=== PATIENT | female | born 1985 | race African-American/Black ===

== ENCOUNTER 2018-11-27 09:54 | Emergency (ER) | payer SELFPAY ==
--- NOTE | 2018-11-27 12:05 | ER Document Report ---
ED ENT - General Chief Complaint: Sinus Pain Stated Complaint: SINUS PAIN Time Seen by Provider: 11/27/18 11:09 Mode of Arrival: Ambulatory Information source: Patient Notes: 33-year-old female presented to ED for complaint of pain and drainage times 1 day. She denies any fevers. She states she had severe facial pain with congestion and drainage. She denies any cough. She states she always has to have penicillin when she gets the symptoms. She was very adamant that she was not going home without an antibiotic that D that she needed to be seen by another provider I needed to write her her penicillin. After examining her I explained to her that she had a viral upper respiratory infection. She states that needed to either treat her or have someone else see her. TRAVEL OUTSIDE OF THE [place] IN LAST 30 DAYS: No - HPI Patient complains to provider of: Nose problem Onset: Yesterday Onset/Duration: Gradual Quality of pain: Achy, Sharp Severity: Moderate Pain Level: 2 Context: Recent Illness Location of pain: Face, Sinus Associated symptoms: Runny nose, Sinus pain, Sinus drainage. denies: Congestion, Cough, Face swelling, Fever, Sore throat Similar symptoms previously: Yes Recently seen / treated by doctor: No - Related Data Allergies/Adverse Reactions: sulfamethoxazole [From Bactrim] Allergy (Verified 11/27/18 09:55) trimethoprim [From Bactrim] Allergy (Verified 11/27/18 09:55) Past Medical History - General Information source: Patient - Social History Smoking Status: Never Smoker Chew tobacco use (# tins/day): No Frequency of alcohol use: None Drug Abuse: Marijuana Lives with: Family Family History: Reviewed & Not Pertinent Patient has suicidal ideation: No Patient has homicidal ideation: No - Past Medical History Cardiac Medical History: Reports: None Pulmonary Medical History: Reports: Hx Asthma EENT Medical History: Reports: None Neurological Medical History: Reports: Hx Migraine Endocrine Medical History: Reports: None Renal/ Medical History: Reports: None Malignancy Medical History: Reports: None GI Medical History: Reports: None Musculoskeletal Medical History: Reports None Skin Medical History: Reports None Psychiatric Medical History: Reports: None Traumatic Medical History: Reports: None Infectious Medical History: Reports: None Past Surgical History: Reports: Hx Abdominal Surgery - GASTRIC SLEEVE., Hx Section Review of Systems - Review of Systems Constitutional: Recent illness. denies: Chills, Fever EENT: Nose congestion, Nose discharge, Sinus pressure, Sinus discharge Cardiovascular: No symptoms reported Respiratory: No symptoms reported Gastrointestinal: No symptoms reported Genitourinary: No symptoms reported Female Genitourinary: No symptoms reported Musculoskeletal: No symptoms reported Skin: No symptoms reported Hematologic/Lymphatic: No symptoms reported Neurological/Psychological: No symptoms reported -: Yes All other systems reviewed and negative Physical Exam - Vital signs Vitals: Temp Pulse Resp BP Pulse Ox 98.8 F 80 18 141/83 H 100 11/27/18 09:57 11/27/18 09:57 11/27/18 09:57 11/27/18 09:57 11/27/18 09:57 Interpretation: Normal - General General appearance: Appears well, Alert - HEENT Head: Normocephalic, Atraumatic Eyes: Normal Pupils: PERRL Ears: Normal External canal: Normal Tympanic membrane: Normal Sinus: Maxillary Nasal: Purulent discharge, Swelling Mouth/Lips: Normal Mucous membranes: Normal Pharynx: Post nasal drainage. No: Erythema, Exudate, Tonsillar hypertrophy Neck: Normal - Respiratory Respiratory status: No respiratory distress Chest status: Nontender Breath sounds: Normal Chest palpation: Normal - Cardiovascular Rhythm: Regular Heart sounds: Normal auscultation Murmur: No - Abdominal Inspection: Normal Distension: No distension Bowel sounds: Normal Tenderness: Nontender Organomegaly: No organomegaly - Back Back: Normal, Nontender - Extremities General upper extremity: Normal inspection, Nontender, Normal color, Normal ROM, Normal temperature General lower extremity: Normal inspection, Nontender, Normal color, Normal ROM, Normal temperature, Normal weight bearing. No: Elicia's sign - Neurological Neuro grossly intact: Yes Cognition: Normal Orientation: AAOx4 Rox Coma Scale Eye Opening: Spontaneous [place] Coma Scale Verbal: Oriented Rox Coma Scale Motor: Obeys Commands [place] Coma Scale Total: 15 Speech: Normal Motor strength normal: LUE, RUE, LLE, RLE Sensory: Normal - Psychological Associated symptoms: Normal affect, Normal mood - Skin Skin Temperature: Warm Skin Moisture: Dry Skin Color: Normal Course - Re-evaluation Re-evalutation: 11/27/18 12:13 Patient's assessment is consistent with an upper respiratory infection viral i nfection. Patient was insistent that she get penicillin for her viral infection. She states that nothing else works and that she needs that now or she goes home with pain in her face. I explained to the patient that if her strep was positive I would give her penicillin otherwise it is a viral infection and she does not require antibiotics. She became very angry and adamant that she needed penicillin today. She has in her record that she is allergic to amoxicillin. She states she is not allergic to amoxicillin it gives her yeast infection and penicillin and what makes her sinus infections better. She has not had any fever she is only been sick for 1 day. She insisted I get another provider to come and see her. I did go and talk to Dr. Sargent he came and examined the patient and stated that I needed to write her a prescription for penicillin that he had approved it and that she could have the penicillin. She has been discharged with a diagnosis of an upper respiratory infection with the penicillin prescription per Dr. Sargent's request. - Vital Signs Vital signs: Temp Pulse Resp BP Pulse Ox 97.5 F 81 18 143/91 H 100 11/27/18 12:22 11/27/18 12:22 11/27/18 12:22 11/27/18 12:22 11/27/18 12:22 Discharge - Discharge Clinical Impression: Otalgia of both ears, Sinus pain URI (upper respiratory infection) Qualifiers: URI type: unspecified viral URI Qualified Code(s): J06.9 - Acute upper respiratory infection, unspecified Condition: Stable Disposition: HOME, SELF-CARE Instructions: Family Physicians / Practices Additional Instructions: UPPER RESPIRATORY ILLNESS: You have a viral infection of the respiratory passages -- a "cold." This common infection causes nasal congestion, drainage, and often sore throat and cough. It is highly contagious. The disease usually lasts about 10 to 14 days. There is no "cure" for the viral infection -- it must run its course. If there is a complication, such as bacterial infection in the nose, sinuses, middle ear, or bronchial tubes, antibiotics may be required. The antibiotics won't affect the virus. Drink plenty of fluids. A humidifier may help. An expectorant medication or decongestant may make you more comfortable. Use acetaminophen or ibuprofen for fever or aches. See the doctor if fever persists over two days, if there is any significant worsening of your symptoms, or if you simply fail to improve as expected. USE OF ACETAMINOPHEN (Tylenol): Acetaminophen may be taken for pain relief or fever control. It's much safer than aspirin, offering a wider range of "safe" dosages. It is safe during . Some brand names are Tylenol, Panadol, Datril, Anacin 3, Tempra, and Liquiprin. Acetaminophen can be repeated every four hours. The following are maximum recommended dosages: >89 pounds or adults 650 mg to 900 mg Acetaminophen can be repeated every four hours. Maximum dose not to exceed 4000 mg a day. Penicillin VK You have been given a prescription for Penicillin VK. Your physician has determined that this is the best antibiotic for your condition. Pen VK can be taken with meals, however more of the antibiotic gets into the bloodstream if it's taken on an empty stomach. Penicillin usually has no side effects. However, allergy to penicillins is common. If you have had an allergic reaction to any drug of the penicillin family, you should never take any other penicillin. Notify your doctor at once if you develop hives, itching, swelling, faintness, or shortness of breath. FOLLOW-UP CARE: If you have been referred to a physician for follow-up care, call the physicians office for an appointment as you were instructed or within the next two days. If you experience worsening or a significant change in your symptoms, notify the physician immediately or return to the Emergency Department at any time for re-evaluation. Prescriptions: Penicillin V Potassium [Penicillin Vk 500 mg Tablet] 500 mg PO BID #20 tablet Forms: Elevated Blood Pressure
[2018-11-27 12:24] VITALS: BP 143/91
== END 2018-11-27 12:25 | disposition home or self-care (01) ==
LOC: ER 09:54
DX: J06.9 Acute upper respiratory infection, unspecified (principal); B97.89 Other viral agents as the cause of diseases classified elsewhere; J34.89 Other specified disorders of nose and nasal sinuses; H92.03 Otalgia, bilateral; R09.81 Nasal congestion; R09.82 Postnasal drip; F12.10 Cannabis abuse, uncomplicated; J45.909 Unspecified asthma, uncomplicated; Z88.1 Allergy status to other antibiotic agents; Z98.84 Bariatric surgery status
CPT/HCPCS: 87070; 87880; 99283

== ENCOUNTER 2020-02-11 10:14 | Emergency (ER) | payer BC ==
--- NOTE | 2020-02-11 10:40 | ER Document Report ---
ED Respiratory Problem - General Chief Complaint: Shortness Of Breath Stated Complaint: SHORT OF BREATH,CONGESTION Time Seen by Provider: 02/11/20 10:22 Notes: CHIEF COMPLAINT: Cough and congestion for 2 months HPI: 34-year-old obese female presenting to the emergency department complaining of cough and congestion for 2 months. Patient states that in October 2019 she had upper respiratory symptoms her tested positive for COVID-19 at that time. Patient states she did take a course of Augmentin but feels like the cough and congestion have been intermittent over the last 2 months still. Patient states her had a secondary retest that was -3 weeks ago. Patient has not had a fever. She states that she does have slight chest discomfort that is more with deep breathing than actual chest pain at rest. States this is also been ongoing for over a month. Patient states she called her PCP and was unable to get COVID testing done which is primarily what she is concerned about today. ROS: See HPI - all other systems were reviewed and are otherwise negative Constitutional: no fever Eyes: no drainage, no blurred vision ENT: + runny nose, no sore throat Cardiovascular: + pleuritic chest pain Resp: no SOB, no cough GI: no vomiting, no diarrhea, no abdominal pain : no dysuria Integumentary: no rash Allergy: no hives Musculoskeletal: no extremity pain or swelling Neurological: no numbness/tingling, no weakness MEDICATIONS: I agree with the patient medications as charted by the RN. ALLERGIES: I agree with the allergies as charted by the RN. PAST MEDICAL HISTORY/PAST SURGICAL HISTORY: Reviewed and agree as charted by RN. SOCIAL HISTORY: Reviewed and agree as charted by RN. FAMILY HISTORY: No significant familial comorbid conditions directly related to patient complaint EXAM: Reviewed vital signs as charted by RN. CONSTITUTIONAL: Alert and oriented and responds appropriately to questions. Well-appearing; well-nourished HEAD: Normocephalic; atraumatic EYES: PERRL; Conjunctivae clear, sclerae non-icteric ENT: normal nose; + clear rhinorrhea; moist mucous membranes; pharynx without lesions noted, no uvula edema or deviation, no tonsillar hypertrophy, phonation normal NECK: Supple without meningismus; non-tender; no cervical lymphadenopathy, no masses CARD: RRR; no murmurs, no clicks, no rubs, no gallops; symmetric distal pulses RESP: Normal chest excursion without splinting or tachypnea; breath sounds clear and equal bilaterally; no wheezes, no rhonchi, no rales, pulse oximetry 97% on room air not hypoxic ABD/GI: Obese, normal bowel sounds; non-distended; soft, non-tender, no rebound, no guarding; no palpable organomegaly or masses. BACK: The back appears normal and is non-tender to palpation, there is no CVA tenderness EXT: Normal ROM in all joints; non-tender to palpation; no cyanosis, no effusions, no edema SKIN: Normal color for age and race; warm; dry; good turgor; no acute lesions noted NEURO: Moves all extremities equally; Motor and sensory function intact PSYCH: The patient's mood and manner are appropriate. Grooming and personal hygiene are appropriate. MDM: 34-year-old female presenting for 2 months of upper respiratory symptoms 1 month of intermittent pleuritic type chest discomfort. had tested positive for COVID-19 2 months ago. Patient was treated with antibiotics apparently 2 months ago, has not had any other antibiotics recently. Has not h ad a fever does not become dyspneic with speaking. Given her chest pain complaint even though it appears pleuritic and less likely to be ACS will obtain 1 set of screening cardiac labs but will also include d-dimer. TRAVEL OUTSIDE OF THE [place] IN LAST 30 DAYS: No - Related Data Allergies/Adverse Reactions: sulfamethoxazole [From Bactrim] Allergy (Verified 11/27/18 09:55) trimethoprim [From Bactrim] Allergy (Verified 11/27/18 09:55) Past Medical History - Social History Smoking Status: Unknown if Ever Smoked Family History: Reviewed & Not Pertinent Pulmonary Medical History: Reports: Hx Asthma Neurological Medical History: Reports: Hx Migraine Renal/ Medical History: Denies: Hx Peritoneal Dialysis Past Surgical History: Reports: Hx Abdominal Surgery - GASTRIC SLEEVE., Hx Section Physical Exam - Vital signs Vitals: Temp Pulse Resp BP Pulse Ox 98.2 F 71 18 155/109 H 100 02/11/20 10:42 02/11/20 10:42 02/11/20 10:42 02/11/20 10:42 02/11/20 10:42 Course - Re-evaluation Re-evalutation: 02/11/20 11:03 Patient d-dimer was noted to be elevated. My review of her chest x-ray does not show an acute emergent abnormality or infiltrate. Will obtain CT chest to evaluate for PE 02/11/20 12:48 Patient's lab work does not show any other acute abnormalities other than the slightly elevated d-dimer and an unexplained elevation of her liver functions. Patient does not have abdominal pain is not jaundiced. Will have her follow this up with her PCP. Patient CT of the chest does not show evidence of any abnormalities including pulmonary embolus or pneumonia. She likely has pleurisy will place her on a course of anti-inflammatories and again follow-up with her PCP. Low suspicion for ACS. - Vital Signs Vital signs: Temp Pulse Resp BP Pulse Ox 98.2 F 71 18 155/109 H 100 02/11/20 10:47 02/11/20 10:42 02/11/20 10:42 02/11/20 10:42 02/11/20 10:42 - Laboratory Result Diagrams: 02/11/20 10:33 02/11/20 10:33 Laboratory results interpreted by me: 02/11/20 02/11/20 02/11/20 10:33 10:33 10:33 RDW 14.7 H Seg Neutrophils % 40.8 L D-Dimer 0.75 H Chloride 108 H AST 341 H ALT 244 H Alkaline Phosphatase 156 H Discharge - Discharge Clinical Impression: Pleuritic chest pain, Person under investigation for COVID-19 Condition: Stable Disposition: HOME, SELF-CARE Instructions: Pleurisy ([facility]) Additional Instructions: Your imaging studies including the CT of your chest did not show evidence of pneumonia or a blood clot. Your lab work did not show other acute abnormalities other than an unexplained elevation of your liver enzymes. This should be followed up with a primary care provider to have them rechecked and further evaluated. These are not likely related to your symptoms today. You are considered a person under investigation at this time quarantine at home for the next 14 days or until you have a negative test result. Return for worsening condition. Take the Voltaren to treat the pleuritic discomfort Prescriptions: Diclofenac Sodium [Voltaren 50 Mg Tablet.] 50 mg PO BID #20 tablet. Referrals: LISSY PEÑALOZA MD [ACTIVE STAFF] - Follow up as needed
[2020-02-11 10:51] LABS: ABSOLUTE EOSINOPHILS # (AUTO) 0.1 10^3/uL (0.0-0.6); ABSOLUTE LYMPHOCYTES (AUTO) 2.5 10^3/uL (0.5-4.7); ABSOLUTE MONOCYTES (AUTO) 0.7 10^3/uL (0.1-1.4); ABSOLUTE NEUT (AUTO) 2.3 10^3/uL (1.7-8.2); BASOPHILS % (AUTO) 0.8 % (0-2); EOSINOPHILS % (AUTO) 2.4 % (0-6); HEMATOCRIT 42.9 % (36.0-47.0); HEMOGLOBIN 14.6 g/dL (12.0-15.5); LYMPHOCYTES % (AUTO) 43.9 % (13-45); MEAN CORPUSCULAR HEMOGLOBIN 29.5 pg (27.0-33.4); MEAN CORPUSCULAR VOLUME 87 fl (80-97); MONOCYTES % (AUTO) 12.1 % (3-13); PLATELET COUNT 272 10^3/uL (150-450); RED BLOOD COUNT 4.95 10^6/uL (3.72-5.28); RED CELL DISTRIBUTION WIDTH 14.7 % (11.5-14.0); SEGMENTED NEUTROPHILS % (AUTO) 40.8 % (42-78); TOTAL CELLS COUNTED % (AUTO) 100 %; WHITE BLOOD COUNT 5.7 10^3/uL (4.0-10.5)
[2020-02-11 11:05] LABS: ALBUMIN 4.3 g/dL (3.5-5.0); ALKALINE PHOSPHATASE 156 U/L (38-126); ANION GAP 7 (5-19); ASPARTATE AMINO TRANSFERASE 341 U/L (14-36); BILIRUBIN,TOTAL 0.5 mg/dL (0.2-1.3); BLOOD UREA NITROGEN 12 mg/dL (7-20); CALCIUM 9.5 mg/dL (8.4-10.2); CARBON DIOXIDE 23 mmol/L (22-30); CHLORIDE 108 mmol/L (98-107); GLUCOSE 91 mg/dL (75-110); POTASSIUM 4.1 mmol/L (3.6-5.0); TOTAL PROTEIN 7.4 g/dL (6.3-8.2)
--- NOTE | 2020-02-11 11:51 | RADIOLOGY REPORT (SQ) ---
EXAM DESCRIPTION: CHEST SINGLE VIEW IMAGES COMPLETED DATE/TIME: 02/11/2020 10:54 am REASON FOR STUDY: cough COMPARISON: None. TECHNIQUE: Single frontal radiographic view of the chest acquired. NUMBER OF VIEWS: One view. LIMITATIONS: None. FINDINGS: LUNGS AND PLEURA: No pneumothorax. No consolidation or pleural effusion. MEDIASTINUM AND HILAR STRUCTURES: No contour abnormalities. HEART AND VASCULAR STRUCTURES: Heart normal size. BONES: No acute findings. HARDWARE: None in the chest. OTHER: No other significant finding. IMPRESSION: NO ACUTE FINDINGS. TECHNICAL DOCUMENTATION: JOB ID: [id number] [place]-72 2010 [employer]- All Rights Reserved Reading location - IP/workstation name: [email or web address]
--- NOTE | 2020-02-11 12:16 | RADIOLOGY REPORT (SQ) ---
EXAM DESCRIPTION: CTA CHEST IMAGES COMPLETED DATE/TIME: 02/11/2020 11:59 am REASON FOR STUDY: elevated D dimer, pleurisy COMPARISON: None. TECHNIQUE: CT scan of the chest performed using helical scanning technique with dynamic intravenous contrast injection. Images reviewed with lung, soft tissue and bone windows. Reconstructed coronal and sagittal MPR images reviewed. Additional 3 dimensional post-processing performed to develop Maximal Intensity Projection images ([place] P). All images stored on PACS. All CT scanners at this facility use dose modulation, iterative reconstruction, and/or weight based d osing when appropriate to reduce radiation dose to as low as reasonably achievable (ALARA). [facility]: Dose Right [facility]: CareDose [facility]: Dose Right [facility]: Teradose 4D [facility]: [employer] CONTRAST TYPE AND DOSE: 90 mL Isovue 370- low osmolar. Contrast bolus optimized for the pulmonary arteries. Not diagnostic for the aorta. RENAL FUNCTION: GFR > 60. RADIATION DOSE: CT Rad equipment meets quality standard of care and radiation dose reduction techniq ues were employed. CTDIvol: 6.6 - 33.1 mGy. DLP: 1068 mGy-cm. . LIMITATIONS: None. FINDINGS: LUNGS AND PLEURA: No masses, infiltrates, or pneumothorax. No pleural effusions or pleura l calcifications. AORTA AND GREAT VESSELS: No aneurysm. Contrast bolus not optimized for the aorta. HEART: No pericardial effusion. No significant coronary artery calcifications. PULMONARY ARTERIES: No emboli visualized in the main pulmonary arteries or the segmental branches. HILAR AND MEDIASTINAL STRUCTURES: No identified masses or abnormal nodes. HARDWARE: None in the chest. UPPER ABDOMEN: No significant findings. Limited exam. THYROID AND OTHER SOFT TISSUES: No masses. No adenopathy. BONES: No acute or significant finding. 3D MIPS: Confirm above findings. OTHER: No other significant finding. IMPRESSION: NORMAL CTA OF THE CHEST. NO PULMONARY EMBOLI. COMMENT: Quality ID # [id number]: Final reports with documentation of one or more dose reduction techniques (e.g., Automated exposure control, adjustment of the mA and/or kV according to patient size, use of iterative reconstruction technique) TECHNICAL DOCUMENTATION: JOB ID: [id number] [place]-72 2010 [employer]- All Rights Reserved Reading location - IP/workstation name: [email or web address]
[2020-02-11 13:30] VITALS: BP 139/91
--- NOTE | 2020-02-11 22:40 | EKG REPORT ---
SEVERITY:- BORDERLINE ECG - SINUS RHYTHM PROBABLE LEFT ATRIAL ABNORMALITY : Confirmed by: Juliana Espitia MD 11-Feb-2020 22:40:29
== END 2020-02-11 13:25 | disposition home or self-care (01) ==
LOC: ER 10:14
DX: R07.81 Pleurodynia (principal); Z20.828 Contact with and (suspected) exposure to other viral communicable diseases; R06.02 Shortness of breath; R09.81 Nasal congestion; R05 Cough; J34.89 Other specified disorders of nose and nasal sinuses; J45.909 Unspecified asthma, uncomplicated
CPT/HCPCS: 93005; 99285; 36415; 83690; 85025; 87635; 80053; 84484; 85379; 71045; 71275; 93010; C9803